=== PATIENT | male | born 1980 | race Caucasian/White ===

== ENCOUNTER 2021-01-02 21:08 | Emergency (ER) | payer OTHER ==
--- NOTE | 2021-01-02 21:57 | EDM.PDOC ---
ED HPI GENERAL MEDICAL PROBLEM - General Chief Complaint: ENT Problem Stated Complaint: LEFT EAR PAIN Time Seen by Provider: 01/02/21 21:35 Source of Information: Reports: Patient History Limitations: Reports: No Limitations - History of Present Illness INITIAL COMMENTS - FREE TEXT/NARRATIVE: 40-year-old male presents with left ear pain since yesterday. Pain is moderate, localized to the parotid gland region, constant, sharp, no alleviating or exacerbating factors, nonradiating. Patient denies fever, chills, headache, chest pain, shortness of breath, abdominal pain, focal numbness or weakness. He had a root canal recently on the left lower jaw. ROS: A 10-point review of systems, other than pertinent positives and negatives as stated per HPI, is otherwise negative Past medical history: No additional pertinent history Past Surgical history: No additional pertinent history Social history: No additional pertinent history Family history: No additional pertinent history PHYSICAL EXAM General: AOx4, GCS = 15, No distress HEENT: dry mucous membrane, no tenderness to pinna and tragus manipulation, no tenderness to mastoid process, mild swelling to the parotid gland with mild tenderness. No intraoral abscess, no tonsillar exudates or swelling or erythema. Neck: supple, no meningismus, no Kernig or Brudzinski Cardiac: S1S2 RRR Respiratory: CTAB, no crackles or rales, no wheezing Abdomen: Soft, nontender, no rebound or guarding, nondistended, no pulsatile mass. Back: nontender Musculoskeletal: NVI distally, no deformity Neuro: No focal deficits, CN 2 - 12 WNL. left ear Pain Score (Numeric/FACES): 8 - Related Data Allergies Allergy/AdvReac Type Severity Reaction Status Date / Time No Known Allergies Allergy Verified 01/02/21 21:23 Home Meds: Home Meds Amoxicillin/Potassium Clav [Augmentin 875-125 Tablet] 1 each PO BID #20 tablet 01/02/21 [Rx] Naproxen [Naprosyn] 500 mg PO Q12HR #30 tab 01/02/21 [Rx] Past Medical History HEENT History: Reports: None Cardiovascular History: Reports: None Respiratory History: Reports: None Gastrointestinal History: Reports: None Genitourinary History: Reports: None Musculoskeletal History: Reports: None Neurological History: Reports: None Psychiatric History: Reports: None Endocrine/Metabolic History: Reports: None Insulin Pump Model and Electrical System Specialist: None Hematologic History: Reports: None Immunologic History: Reports: None Oncologic (Cancer) History: Reports: None Dermatologic History: Reports: None - Infectious Disease History Infectious Disease History: Reports: None - Past Surgical History Head Surgeries/Procedures: Reports: None Social & Family History - Caffeine Use Caffeine Use: Reports: Coffee, Soda - Recreational Drug Use Recreational Drug Use: No ED ROS ENT - Review of Systems Review Of Systems: See Below (see dictation) ED EXAM, ENT - Physical Exam Exam: See Below (see dictation) Course - Vital Signs Last Recorded V/S: Last Vital Signs Temp 97.3 F 01/02/21 21:24 Pulse 73 01/02/21 21:24 Resp 18 01/02/21 21:24 BP 132/78 01/02/21 21:24 Pulse Ox 96 01/02/21 21:24 - Re-Assessments/Exams Free Text/Narrative Re-Assessment/Exam: 01/02/21 21:53 He exhibits normal vital signs and has a normal gait on road test. I advised the patient to return to the ER for reevaluation if symptoms worsened, including fever, worsening pain, or any other worrisome symptoms. I instructed the patient to follow up with their PCP within 2-3 days. MEDICAL DECISION MAKING: I reviewed the patients past medical records, lab and radiographic findings. I discussed the case with the patient. My differential diagnosis included: Parotitis, otitis externa, otitis media. Patient is afebrile with no tachycardia, I do not suspect infectious etiology, he had no tenderness to mastoid process, I do not suspect mastoiditis. He had mild tenderness and swelling to his left parotid gland, I suspect parotitis. I do not see any intraoral abscess or swelling or silo lithiasis Departure - Departure Time of Disposition: 21:54 Disposition: Home, Self-Care 01 Condition: Good Clinical Impression: Acute parotitis - Discharge Information *PRESCRIPTION DRUG MONITORING PROGRAM REVIEWED*: Not Applicable *COPY OF PRESCRIPTION DRUG MONITORING REPORT IN PATIENT SILVANO: Not Applicable Prescriptions: Amoxicillin/Potassium Clav [Augmentin 875-125 Tablet] 1 each PO BID #20 tablet Naproxen [Naprosyn] 500 mg PO Q12HR #30 tab Instructions: Parotitis Referrals: PCP,None [Primary Care Provider] - Additional Instructions: The need for follow-up, as well as the timing and circumstances, are variable de pending upon the specifics of your emergency department visit. If you don't have a primary care physician on staff, we will provide you with a referral. We always advise you to contact your personal physician following an emergency department visit to inform them of the circumstance of the visit and for follow-up with them and/or the need for any referrals to a consulting specialist. The emergency department will also refer you to a specialist when appropriate. This referral assures that you have the opportunity for follow-up care with a specialist. All of these measure are taken in an effort to provide you with optimal care, which includes your follow-up. Under all circumstances we always encourage you to contact your private physician who remains a resource for coordinating your care. When calling for follow-up care, please make the office aware that this follow-up is from your recent emergency room visit. If for any reason you are refused follow-up, please contact the [facility] Emergency Department at and asked to speak to the emergency department charge nurse. If you do not have a primary care doctor, please follow up with the clinics below within 3-5 days. [facility] - Primary Care [address] [place] [id number] [facility] [address] [place] [id number] Sepsis Event Note (ED) - Evaluation Sepsis Screening Result: No Definite Risk - Focused Exam Vital Signs: Vital Signs Temp Pulse Resp BP Pulse Ox 01/02/21 21:24 97.3 F 73 18 132/78 96
[2021-01-02] MEDS ORDERED: Naproxen 500 MG Tab PO ONE (22:05)
[2021-01-02] MEDS ORDERED: Amoxicillin/Clavulanate K 875-125 MG Tab PO ONE (22:08)
[2021-01-02] MEDS ORDERED: Amoxicillin/Clavulanate K 875-125 MG Tab ONE (22:09)
== END 2021-01-02 22:20 | disposition home or self-care (01) ==
LOC: MW.ED 21:08
DX: K11.21 Acute sialoadenitis (principal)
CPT/HCPCS: 99282; A9270; 99283